=== PATIENT | female | born 1930 | race African-American/Black ===

== ENCOUNTER 2017-03-31 19:31 | Emergency (ER) | payer MEDICARE, BC ==
[~2017-03-31] VITALS: Ht 154.9 cm; Wt 57.0 kg
[2017-03-31 19:35] VITALS: BP 184/79; PULSE 65; RESP 16; TEMP 98.1; O2SAT 97
--- NOTE | 2017-03-31 20:14 | RADRPT ---
EXAM DATE/TIME: 03/31/2017 19:59 [facility] COMPARISON: No previous studies available for comparison. INDICATIONS : Right knee pain after knee gave out. MEDICAL HISTORY : Hypertension. Diabetes mellitus type II. SURGICAL HISTORY : Total knee replacement, left. Right heel. Left heel. ENCOUNTER: Initial ACUITY: 1 week PAIN SCORE: 10/10 LOCATION: Right knee FINDINGS: There are extensive vascular calcifications noted and the bony structures are osteoporotic with chond rocalcinosis calcification bilateral menisci as well as degenerative changes narrowing of the medial joint compartment and subchondral sclerosis medial tibial plateau and minimal spurring off the patell a. There is no acute bony injury or dislocation. CONCLUSION: No acute bony abnormality. Osteoporosis and degenerative change.. Francois Vernon MD on March 31, 2017 at 20:11 Board Certified Radiologist. This report was verified electronically.
--- NOTE | 2017-03-31 20:25 | PD ---
HPI Chief Complaint: Pain: Acute or Chronic Time Seen by Provider: 19:50 Travel History International Travel<30 days: No Contact w/Intl Traveler<30days: No Traveled to known affect area: No History of Present Illness HPI 86 showed female presents to the emergency department for evaluation of right knee pain. Patient has history chronic right knee pain for several years. She states [place] around 5 PM she slipped in the weeds and fell on her right knee. Patient states she had pain, but was able to walk. However, around 5 PM, when getting ready for dinner, she had worsening right knee pain. She states that she has been able to hobble around the house, but is having worsening difficulty ambulating due to the pain. Patient normally takes Tylenol for her pain, but has not taken any Tylenol yet. She is on Coumadin for history of valve replacement. She denies any fevers or chills. No chest pain or shortness of breath. No abdominal pain. No nausea, vomiting , diarrhea. Patient has history left knee replacement, but denies surgery of the right knee. She reports swelling to the right knee, but states this chronic for her. She denies any erythema or warmth over the right knee. Patient lives at home with her significant other. PFSH Social History Alcohol Use: No Tobacco Use: No Substance Use: No Allergies-Medications (Allergen,Severity, Reaction): Coded Allergies: NSAIDS (Non-Steroidal Anti-Inflamma (Verified Allergy, Severe, 03/31/17) aspirin (Verified Allergy, Severe, 03/31/17) Reported Meds & Prescriptions Reported Meds & Active Scripts Active Reported Atorvastatin (Atorvastatin Calcium) 40 Mg Tab 40 Mg PO HS Folic Acid 0.4 Mg Tab 400 Mcg PO DAILY Centrum (Multiple Vitamins W/ Minerals) 1 Chew 1 Tab CHEW DAILY Verapamil ER 24 HR (Verapamil HCl) 300 Mg Cap 300 Mg PO HS Metoprolol Tartrate 75 Mg Tab 75 Mg PO DAILY Metformin (Metformin HCl) 500 Mg Tab 500 Mg PO DAILY With a meal Glipizide 10 Mg Tab 10 Mg PO DAILY Take 30 minutes before a meal Review of Systems Except as stated in HPI: all other systems reviewed are Neg Physical Exam Narrative GENERAL: Well-nourished, well-developed female patient, afebrile. SKIN: Focused skin assessment warm/dry. HEAD: Normocephalic. Atraumatic. EYES: No scleral icterus. No injection or drainage. NECK: Supple, trachea midline. No JVD or lymphadenopathy. CARDIOVASCULAR: Regular rate and rhythm without murmurs, gallops, or rubs. Bilateral pedal pulses 2+. RESPIRATORY: Breath sounds equal bilaterally. No accessory muscle use. Lungs sounds are clear to auscultation. GASTROINTESTINAL: Abdomen soft, non-tender, nondistended. MUSCULOSKELETAL: No cyanosis. Patient has swelling to the right medial knee. She has mild tenderness over the right medial knee, right upper anterior knee. She has reduced flexion due to pain. She has full sensation to the distal right lower extremity. BACK: Nontender without obvious deformity. No CVA tenderness. Data Data Last Documented VS Vital Signs Date Time Temp Pulse Resp B/P (MAP) Pulse Ox O2 Delivery O2 Flow Rate FiO2 03/31/17 21:37 20 03/31/17 19:35 98.1 65 184/79 (114) 97 Room Air Orders Orders Knee, Complete (4vws) (03/31/17 19:46) Ice/Cold Pack (03/31/17 19:46) Acetamin-Hydrocod 325-5 Mg ([place] 5-325 (03/31/17 20:30) Ct Knee W/O Contrast (03/31/17 ) Radiology Film Requests (03/31/17 ) [facility] Medical Decision Making Medical Screen Exam Complete: Yes Emergency Medical Condition: Yes Medical Record Reviewed: Yes Interpretation(s) Last Impressions Knee X-Ray 03/31/171945 Signed Impressions: Service Date/Time: March 19:59 - CONCLUSION: No acute bony abnormality. Osteoporosis and degenerative change.. Francois Vernon MD CT knee - CONCLUSION: Osteoporosis and extensive degenerative changes. No evidence of fracture or dislocation. There is a joint effusion in the suprapatellar bursa Differential Diagnosis Chronic knee pain versus fracture versus dislocation Narrative Course 86-year-old female presents to the emergency department for evaluation of worsening right knee pain today. Patient is given Lortab 5/325 mg for pain. X- ray of the right knee is ordered. It shows no acute bony abnormality, osteoporosis and degenerative change. Patient continues complaining of severe right knee pain. CT of the right knee is ordered and pending. CT of the right knee shows osteoporosis and extensive degenerative changes. No evidence of fracture or dislocation. There is a joint effusion in the suprapatellar bursa. Patient is sitting on the edge of the bed upon my reassessment. She'll be discharged short-term prescription for tramadol for pain. She has from [place] and has orthopedist in [place]. She states she will follow up with her orthopedist. She is return here for any acute worsening of symptoms. She verbalizes agreement and understanding. The patient was discharged in stable condition with instructions, including return instructions and follow up instructions. Diagnosis Primary Impression: Right knee pain Qualified Codes: M25.561 - Pain in right knee Referrals: Orthopedist call for appointment Patient Instructions: General Instructions, Knee Pain (ED) Additional Instructions: Take tramadol as directed as needed for pain. Ice for 20 minutes 4-5 times daily. Elevate. Follow-up with your orthopedist. Return to the emergency department for any acute worsening of symptoms. Med/Other Pt SpecificInfo: Prescription(s) given Scripts Tramadol (Tramadol) 50 Mg Tab 50 MG PO Q8H Y for PAIN, #12 TAB 0 Refills Prov: Marisa Wall 03/31/17 Disposition: 01 DISCHARGE HOME Condition: Stable Marisa Wall Mar 31, 2017 20:25
[2017-03-31] MEDS ORDERED: ACETAMINOPHEN/HYDROcodone 325 MG/5 MG TAB PO ONE (20:30)
[2017-03-31] MEDS ORDERED: METO-426 PO (20:38)
[2017-03-31] MEDS ORDERED: CENTCHW4 CHEW (20:38)
[2017-03-31] MEDS ORDERED: METF500T PO (20:38)
[2017-03-31] MEDS ORDERED: FOLI400T PO (20:38)
[2017-03-31] MEDS ORDERED: ATOR40TA16 PO (20:38)
[2017-03-31] MEDS ORDERED: VERA300C PO (20:38)
[2017-03-31] MEDS ORDERED: GLIP10TA6 PO (20:38)
[2017-03-31 21:37] VITALS: RESP 20
--- NOTE | 2017-03-31 21:43 | RADRPT ---
EXAM DATE/TIME: 03/31/2017 21:19 [facility] COMPARISON: KNEE RIGHT COMPLETE (4VWS), March 31, 2017, 19:59. INDICATIONS : Right knee pain, unable to bear weight.. RADIATION DOSE: 7.29 CTDIvol (mGy) MEDICAL HISTORY : Osteoarthritis. SURGICAL HISTORY : None. ENCOUNTER: Initial ACUITY: 1 day PAIN SCALE: 9/10 LOCATION: Right knee. TECHNIQUE: Volumetric scanning of the knee was performed. Using automated exposure control and adjustment of th e mA and/or kV according to patient size, radiation dose was kept as low as reasonably achievable to obtain optimal diagnostic quality images. DICOM format image data is available electronically for re view and comparison. FINDINGS: Soft tissues reveal extensive vascular calcifications. Calcifications noted in the suprapatellar viky on mildly ligamentous or bursal. There is a joint effusion in the suprapatellar bursa. The bony struc tures are osteoporotic with chondrocalcinosis bilateral menisci as well as degenerative change and benitez bchondral sclerosis of the medial tibial plateau with both medial and lateral spurring. There is no a cute bony injury or dislocation appreciated. CONCLUSION: Osteoporosis and extensive degenerative changes. No evidence of fracture or dislocation. There is a j oint effusion in the suprapatellar bursa Francois Vernon MD on March 31, 2017 at 21:38 Board Certified Radiologist. This report was verified electronically.
[2017-03-31] MEDS ORDERED: TRAM50TA PO (22:28)
[2017-03-31 22:30] VITALS: BP 172/72
== END 2017-03-31 22:49 | disposition home or self-care (01) ==
LOC: NEPE 19:31
DX: M25.561 Pain in right knee (principal)
CPT/HCPCS: 73564; 73700; 99285